=== PATIENT | female | born 1985 | race African-American/Black ===

== ENCOUNTER 2016-04-21 21:06 | Emergency (ER) | payer OTHER ==
[2016-04-21] MEDS ORDERED: ACETAMINOPHEN 500 MG TABLET PO STA (21:57)
[2016-04-21] MEDS ORDERED: ACETAMINOPHEN 500 MG TABLET PO ONE (22:06)
== END 2016-04-21 23:15 | disposition home or self-care (01) ==
DX: T14.90 Injury, unspecified (principal); W18.2XXA Fall in (into) shower or empty bathtub, initial encounter; Y93.E1 Activity, personal bathing and showering; Y92.012 Bathroom of single-family (private) house as the place of occurrence of the external cause; O26.892 Other specified pregnancy related conditions, second trimester; Z3A.17 17 weeks gestation of pregnancy
CPT/HCPCS: 76805; 99283; A9270

== ENCOUNTER 2022-06-26 07:56 | Outpatient (CLI) | payer OTHER ==
[~2022-06-26 07:56] MED LIST: GADOBUTROL 7.5 MMOL/7.5 ML VIAL ONE
[2022-06-26] MEDS ORDERED: GADOBUTROL 7.5 MMOL/7.5 ML VIAL IVP ONE (11:43)
--- NOTE | 2022-06-26 15:30 | MRI Report ---
PROCEDURE: ABDOMEN W/WO INDICATIONS: DISEASES OF LIVER. Per order requisition, history of focal nodular hyperplasia. CONTRAST: gadavist 7.2ml TECHNIQUE: Coronal ultra fast SE, axial 2D spoiled GE in- and [id number]; axial breath-hold T2 fast SE. Dynam ic axial ultra fast GE during the administration of contrast; post-contrast coronal ultra fast GE or 2D spoiled GE with fat saturation from the hepatic dome to the iliac crests. Optional diffusion weig hted imaging and ADC may be performed. COMPARISON: MR Liver without contrast 02/16/2014 FINDINGS: Lung bases: No pleural effusion. Liver: Interval decrease in size of the heterogeneous masslike lesion/region centered within hepatic segment one, approximate dimensions of 6.2 x 4.5 x 5.7 cm (axial 5 minute postcontrast series 15 imag e 27, coronal postcontrast series 14 image 43). Remeasured similarly on the prior exam, previous appr oximate dimensions of 8.0 x 5.0 x 8.5 cm. The finding is heterogeneous in signal but overall similar to adjacent liver parenchyma on T2-weighted images. Internal enhancement is heterogeneous with areas of hyperintensity, isointensity, and hypointensity present on different contrast phases. Gallbladder and biliary tree: No definite gallstones or biliary ductal dilation. Spleen: No splenomegaly. Pancreas: No pancreatic ductal dilation. Adrenals: No adrenal nodule. Kidneys and ureters: No hydronephrosis. No renal cystic lesion which requires follow up. No solid mas s. Bowel and peritoneum: No bowel distension. No pathologic free fluid. Lymph nodes: No central or retroperitoneal adenopathy. Vessels: No infrarenal aortic aneurysm. Bones: No aggressive osseous abnormality. IMPRESSION: Interval decrease in size of the heterogeneous masslike region/lesion centered within the central jamel er. Overall appearance is nonspecific, could potentially represent an atypical appearance of provided history of focal nodular hyperplasia but other etiologies are not excluded. Correlation with any reynaldo or biopsy results may be helpful, imaging follow-up can be obtained as clinically indicated. Given pr ovided history of focal nodular hyperplasia, if future MRIs of the liver are obtained, Eovist contras t media may be helpful. Reviewed by: Gee Malone MD on 06/26/2022 3:29 PM PDT Approved by: Gee Malone MD on 06/26/2022 3:29 PM PDT Station ID: [id number]
== END 2022-06-26 07:57 | disposition home or self-care (01) ==
LOC: DI 07:56
PROVIDERS: ATTEND Student in an Organized Health Care Education/Training Program
DX: K76.89 Other specified diseases of liver (principal)
CPT/HCPCS: 74183; A9585

== ENCOUNTER 2023-09-27 14:33 | Outpatient (CLI) | payer OTHER | END 2023-09-27 23:59 | disposition EMS.NT | LOC: EMS 14:33 | DX: F41.9 Anxiety disorder, unspecified (principal); F12.90 Cannabis use, unspecified, uncomplicated ==

== ENCOUNTER 2023-10-06 22:33 | Outpatient (CLI) | payer OTHER | END 2023-10-06 22:34 | disposition critical access hospital (66) | LOC: EMS 22:33 | DX: R46.89 Other symptoms and signs involving appearance and behavior (principal); R45.1 Restlessness and agitation; R45.83 Excessive crying of child, adolescent or adult | CPT/HCPCS: A0425; A0429 ==

== ENCOUNTER 2023-10-06 22:51 | Emergency (ER) | payer OTHER ==
--- NOTE | 2023-10-06 23:19 | ED Physician Documentation ---
History of Present Illness - Stated complaint Stated Complaint: ANXIETY, ETOH - Chief complaint Chief Complaint: MHE - History obtained from History obtained from: Patient, Family - Additonal information Additional information: HPI from patient as well as her who is in the ED at patient's bedside. Patient complains of feeling confused, difficulty maintaining mental focus and following conversations. Patient says this started earlier this evening while she was at a karaoke bar. Patient's says that she had similar symptoms a few weeks ago for which she was evaluated in the [facility] emergency department. He says that several tests were undertaken without conclusive findings regarding the etiology of her symptoms. Patient denies alcohol use, illicit drug use. She denies recent injury including head injury. PD PAST MEDICAL HISTORY - Past Medical History Past Medical History: Yes Psych: Depression, Anxiety, ADD/ADHD - Past Surgical History Past Surgical History: Yes /[employer]: Dilation and currettage, Breast reduction HEENT: Tonsil/Adenoidectomy - Present Medications Home Medications: Ambulatory Orders Medication Instructions Recorded Confirmed Pnv No.95/Ferrous Fum/Folic AC 1 tab PO DAILY 04/21/16 04/21/16 [ Tablet] - Allergies Allergies/Adverse Reactions: Allergies Allergy/AdvReac Type Severity Reaction Status Date / Time No Known Drug Allergies Allergy Verified 10/06/23 23:00 - Social History Does the pt smoke?: No Smoking Status: Never smoker Does the pt drink ETOH?: No Does the pt have substance abuse?: No - Immunizations Immunizations are current?: Yes PD ED PE NORMAL - Vitals Vital signs reviewed: Yes - General General: Alert and oriented X 3, No acute distress, Well developed/nourished - HEENT HEENT: Atraumatic, PERRL, EOMI - Neck Neck: Supple, no meningeal sign - Cardiac Cardiac: No murmur - Respiratory Respiratory: No respiratory distress, Clear bilaterally - Neuro Neuro: Alert and oriented X 3, hydrogen operator 2-12 intact, No motor deficit, No sensory deficit, Normal speech Eye Opening: Spontaneous Motor: Obeys Commands Verbal: Oriented GCS Score: 15 PD ED PE EXPANDED - Cardiac Cardiac: Tachy, Regular Rhythm Results - Vitals Vitals: Vital Signs - 24 hr 10/06/23 10/07/23 22:55 00:16 Temperature 36.3 C L Heart Rate 126 H 88 Respiratory 20 18 Rate Blood Pressure 133/98 H 124/88 H O2 Saturation 98 99 Oxygen O2 Source Room air - Labs Labs: Laboratory Tests 10/06/23 10/06/23 10/06/23 23:46 23:58 23:58 WBC 8.2 RBC 4.23 Hgb 11.8 L Hct 37.2 MCV 87.9 MCH 27.9 MCHC 31.7 L RDW 13.9 Plt Count 444 MPV 8.7 Neut # (Auto) 5.2 Lymph # (Auto) 2.3 [place] # (Auto) 0.6 Eos # (Auto) 0.1 Baso # (Auto) 0.1 Absolute Nucleated RBC 0.00 Nucleated RBC % 0.0 Sodium 135 Potassium 4.2 Chloride 101 Carbon Dioxide 28 Anion Gap 6.0 BUN 11 Creatinine 0.7 Estimated GFR (MDRD) 113 Glucose 89 Calcium 9.8 Magnesium 2.0 Total Bilirubin 0.3 AST 16 ALT 11 Alkaline Phosphatase 72 Total Creatine Kinase 69 Total Protein 7.1 Albumin 4.3 Globulin 2.8 Albumin/Globulin Ratio 1.5 Lipase 36 TSH 0.63 Urine Color YELLOW Urine Clarity CLEAR Urine pH 5.5 Ur Specific [place] 1.020 Urine Protein NEGATIVE Urine Glucose (UA) NEGATIVE Urine Ketones NEGATIVE Urine Occult Blood SMALL H Urine Nitrite NEGATIVE Urine Bilirubin NEGATIVE Urine Urobilinogen 0.2 (NORMAL) Ur Leukocyte Esterase NEGATIVE Urine RBC 0-5 Urine WBC 0-3 Ur Squamous Epith Cells MOD Squamous H Urine Bacteria None Seen Ur Microscopic Review INDICATED Urine Culture Comments NOT INDICATED Urine HCG, Qual NEGATIVE Salicylates < 1.5 Urine Opiates Screen NEGATIVE Ur Buprenorphine Scrn NEGATIVE Ur Oxycodone Screen NEGATIVE Urine Methadone Screen NEGATIVE Acetaminophen < 0.1 Ur Barbiturates Screen NEGATIVE Ur Tricyclics Screen NEGATIVE Ur Phencyclidine Scrn NEGATIVE Ur Amphetamine Screen POSITIVE H U Methamphetamines Scrn NEGATIVE U Benzodiazepines Scrn NEGATIVE Urine Cocaine Screen NEGATIVE U Cannabinoids Screen POSITIVE H Ur Drug Screen Comment CUTOFF CONC BELOW: Ethyl Alcohol < 10.0 PD Medical Decision Making - ED course Complexity details: reviewed results, re-evaluated patient, considered differential, d/w patient, d/w family ED course: Patient presents with complaint of confusion, difficulty maintaining mental focus and following conversation. She is able to answer orientation questions accurately, but for much of the HPI/ROS, the patient vacillates rapidly between answering accurately and appropriately, then saying she does not know the answer and expressing anxiety about not knowing why she cannot remember the answers to some of these relatively simple questions. Records from her recent [facility] emergency department visit were requested, faxed to me, and reviewed by me; the visit to ED was on September 26 (2023). The HPI indicates the patient had difficulty with word finding shortly after smoking marijuana. Workup at that time was unremarkable except for urine drug screen showing amphetamines (patient's prescription medications include Adderall) and cannabinoids. No imaging studies were done, as the patient's mental status was rapidly improving during the stay and thus effects of the marijuana were suspected cause of her symptoms. I have ordered MHE-oriented testing but patient is requesting d/c home before all results have returned. CBC is resulted and unremarkable. ED RN informs me that patient was walking to/from bathroom (to provide urine sample) and was joking about how strange it was that she couldn't remember answers to simple questions when she first arrived to ED and that she is requesting d/c home. I thus reevaluated the patient. She is asleep when I enter the room, awakens easily to voice. I asked her if she was feeling better and she answers in the affirmative. She tells me she no longer feels confused and is requesting discharge home. The says he is comfortable taking her home at this time. I did explain to both of them that the entirety of her test results have not returned, but, if she is feeling like her symptoms have resolved, it is unlikely that the pending results would indicate a specific diagnosis, need for further testing, or if indicated specific treatment. Return precautions are reviewed. Departure - Departure Disposition: 01 Home, Self Care Clinical Impression: Confusion Condition: Good Instructions: ED Confusion Discharge Date/Time: 10/07/23 00:18
[2023-10-07 00:02] LABS: BILIRUBIN,URINE NEGATIVE (NEGATIVE); GLUCOSE, URINE (UA) NEGATIVE (NEGATIVE); KETONES,URINE (UA) NEGATIVE (NEGATIVE); LEUKOCYTE ESTERASE, URINE NEGATIVE (NEGATIVE); NITRITE,URINE NEGATIVE (NEGATIVE); OCCULT BLOOD,URINE SMALL (NEGATIVE); PH,URINE 5.5 PH (5.0-7.5); PROTEIN,URINE NEGATIVE (NEGATIVE); UROBILINOGEN,URINE 0.2 (NORMAL) E.U./dL (NORMAL)
[2023-10-07 00:02] LABS: BASOPHILS # (AUTO) 0.1 10^3/uL (0.0-0.1); BASOPHILS % (AUTO) 0.7 %; EOSINOPHILS # (AUTO) 0.1 10^3/uL (0.0-0.7); EOSINOPHILS % (AUTO) 0.6 %; HCT - HEMATOCRIT 37.2 % (37.0-47.0); HGB - HEMOGLOBIN 11.8 g/dL (12.0-16.0); LYMPHOCYTES # (AUTO) 2.3 10^3/uL (1.5-3.5); LYMPHOCYTES % (AUTO) 28.1 %; MEAN CORPUSCULAR HEMOGLOBIN 27.9 pg (27.0-31.0); MEAN CORPUSCULAR HGB CONC 31.7 g/dL (32.0-36.0); MEAN CORPUSCULAR VOLUME 87.9 fL (81.0-99.0); MEAN PLATELET VOLUME 8.7 fL (7.9-10.8); MONOCYTES # (AUTO) 0.6 10^3/uL (0.0-1.0); MONOCYTES % (AUTO) 7.2 %; NEUTROPHILS # (AUTO) 5.2 10^3/uL (1.5-6.6); NEUTROPHILS % (AUTO) 63.3 %; PLT - PLATELET COUNT 444 10^3/uL (130-450); RED BLOOD COUNT 4.23 10^6/uL (4.20-5.40); RED CELL DISTRIBUTION WIDTH 13.9 % (12.0-15.0); WHITE BLOOD COUNT 8.2 x10^3/uL (4.8-10.8)
[2023-10-07 00:17] VITALS: BP 124/88; O2SAT 99
[2023-10-07 00:18] LABS: CLARITY,URINE CLEAR (CLEAR); HCG UR QUAL NEGATIVE
[2023-10-07 00:19] LABS: RBC,URINE 0-5 /HPF (0-5); WBC,URINE 0-3 /HPF (0-5)
[2023-10-07 00:20] LABS: AMPHETAMINE SCREEN,URINE POSITIVE (NEGATIVE); BACTERIA,URINE None Seen /HPF (None Seen); BARBITURATE SCREEN,UR NEGATIVE (NEGATIVE); BENZODIAZEPINES SCREEN, URINE NEGATIVE (NEGATIVE); BUPRENORPHINE SCREEN, URINE NEGATIVE (NEGATIVE); COCAINE SCREEN URINE NEGATIVE (NEGATIVE); METHADONE SCREEN, URINE NEGATIVE (NEGATIVE); METHAMPHETAMINES SCREEN, URINE NEGATIVE (NEGATIVE); OPIATE SCREEN, URINE NEGATIVE (NEGATIVE); OXYCODONE SCREEN, URINE NEGATIVE (NEGATIVE); SQUAMOUS EPITHELIAL CELL,UR MOD Squamous (<= Few); THC CANNABINOID SCREEN, URINE POSITIVE (NEGATIVE); TRICYCLIC ANTIDEPRESSANT,URINE NEGATIVE (NEGATIVE)
[2023-10-07 00:32] LABS: THYROID STIMULATING HORMONE 0.63 uIU/mL (0.34-5.60)
[2023-10-07 00:36] LABS: ALBUMIN 4.3 g/dL (3.2-5.5); ALBUMIN/GLOBULIN RATIO 1.5 (1.0-2.2); ALKALINE PHOSPHATASE 72 IU/L (42-121); ALT ALANINE AMINOTRANSFERASE 11 IU/L (10-60); AST ASPARTATE AMINOTRANSFERASE 16 IU/L (10-42); BILIRUBIN,TOTAL 0.3 mg/dL (0.2-1.0); BUN - BLOOD UREA NITROGEN 11 mg/dL (6-20); CALCIUM 9.8 mg/dL (8.5-10.3); CARBON DIOXIDE - CO2 28 mmol/L (21-32); CHLORIDE 101 mmol/L (101-111); CK- CREATINE KINASE 69 IU/L (30-223); CREATININE 0.7 mg/dL (0.6-1.3); ETOH - ETHANOL < 10.0 mg/dL; GFR - MDRD 113 (>89); GLUCOSE 89 mg/dL (74-104); LIPASE 36 U/L (11-82); POTASSIUM 4.2 mmol/L (3.5-4.5); SODIUM 135 mmol/L (135-145); TOTAL PROTEIN 7.1 g/dL (6.4-8.9)
[2023-10-07 00:37] LABS: ACETAMINOPHEN < 0.1 ug/mL; SALICYLATE < 1.5 mg/dL
== END 2023-10-07 00:18 | disposition home or self-care (01) ==
LOC: EDUNIT# → ED 22:51
DX: R41.0 Disorientation, unspecified (principal); Z79.899 Other long term (current) drug therapy
CPT/HCPCS: 36415; 80053; 80143; 80179; 80306; 81001; 81003; 81025; 82077; 82550; 83690; 83735; 84443; 85025; 87086; 99283

== ENCOUNTER 2023-11-01 23:06 | Outpatient (CLI) | payer OTHER | END 2023-11-01 23:07 | disposition critical access hospital (66) | LOC: EMS 23:06 | DX: R56.9 Unspecified convulsions (principal); R45.89 Other symptoms and signs involving emotional state; F10.90 Alcohol use, unspecified, uncomplicated; F12.90 Cannabis use, unspecified, uncomplicated | CPT/HCPCS: A0425; A0429 ==

== ENCOUNTER 2023-11-01 23:22 | Emergency (ER) | payer OTHER ==
--- NOTE | 2023-11-01 23:21 | ED Physician Documentation ---
PD HPI ALTERED MENTAL STATUS - Stated complaint Stated Complaint: AMS - History obtained from History obtained from: Patient, EMS - Additional information Additional information: BIBA. HPI is predominantly from EMS; most of their HPI was informed by the patient's friend on scene (who is not in the ED at this time). Patient contributes some information to HPI, but questionable reliability due to odd behavior. Per EMS, they responded to 911 call at a local club. Patient's friend informed EMS that both he and the patient were sharing a marijuana joint which the friend described as quite strong to EMS. Patient's friend said that the patient then went into "convulsions" (unclear if this was accompanied by LOC, if it was true seizure activity; short, there is no description of what is meant by "convulsions"). In any event, the patient has subsequently been exhibiting emotional lability, frequently anxious and tearful, frequently with vaguely paranoid thoughts although she is denying SI, HI, AH, VH on my HPI.EMS says that, en route to ED, the patient did have some brief periods where she seemed more lucid, aware of what had happened no longer seeming tearful nor anxious, just to shortly thereafter return to crying and expressing that she was not sure where she was or how she had gotten there. PD PAST MEDICAL HISTORY - Past Medical History Past Medical History: No Psych: Depression - Present Medications Home Medications: Ambulatory Orders Medication Instructions Recorded Confirmed Pnv No.95/Ferrous Fum/Folic AC 1 tab PO DAILY 04/21/16 04/21/16 [ Tablet] - Allergies Allergies/Adverse Reactions: Allergies Allergy/AdvReac Type Severity Reaction Status Date / Time No Known Drug Allergies Allergy Verified 10/06/23 23:00 PD ED PE NORMAL - Vitals Vital signs reviewed: Yes - General General: Alert and oriented X 3, Well developed/nourished, Other (tearful, slowly but repeatedly scanning room. adequate eye contact although gaze occasionally suddenly darts around room without provocation/stimulus) - HEENT HEENT: PERRL, EOMI, Moist mucous membranes - Neck Neck: Supple, no meningeal sign - Cardiac Cardiac: No murmur - Respiratory Respiratory: No respiratory distress, Clear bilaterally - Abdomen Abdomen: Soft, Non tender - Neuro Neuro: Alert and oriented X 3 Eye Opening: Spontaneous Motor: Obeys Commands Verbal: Oriented GCS Score: 15 PD ED PE EXPANDED - Cardiac Cardiac: Tachy, Regular Rhythm - Psych Psych: Tearful, Anxious Results - Vitals Vitals: Vital Signs - 24 hr 11/01/23 11/01/23 11/01/23 23:23 23:32 23:52 Temperature 36.7 C Heart Rate 118 H 103 H Respiratory 18 20 Rate Blood Pressure 135/8 H 135/82 H 130/80 O2 Saturation 99 100 11/02/23 11/02/23 11/02/23 00:07 03:05 03:46 Temperature Heart Rate 104 H 104 H 88 Respiratory 18 16 16 Rate Blood Pressure 116/80 119/84 H 118/80 O2 Saturation 98 99 99 Oxygen O2 Source Room air - Labs Labs: Laboratory Tests 11/01/23 11/01/23 11/02/23 23:38 23:38 03:30 WBC 7.6 RBC 4.11 L Hgb 11.7 L Hct 36.0 L MCV 87.6 MCH 28.5 MCHC 32.5 RDW 13.5 Plt Count 415 MPV 8.7 Neut # (Auto) 3.8 Lymph # (Auto) 3.3 [place] # (Auto) 0.4 Eos # (Auto) 0.1 Baso # (Auto) 0.0 Absolute Nucleated RBC 0.00 Nucleated RBC % 0.0 Sodium 138 Potassium 3.4 L Chloride 104 Carbon Dioxide 25 Anion Gap 9.0 BUN 7 Creatinine 0.9 Estimated GFR (MDRD) 84 L Glucose 98 Calcium 10.7 H Total Bilirubin 0.3 AST 15 ALT 11 Alkaline Phosphatase 63 Total Protein 7.7 Albumin 4.5 Globulin 3.2 Albumin/Globulin Ratio 1.4 Lipase 50 Urine Color YELLOW Urine Clarity CLEAR Urine pH 5.5 Ur Specific [place] 1.025 Urine Protein NEGATIVE Urine Glucose (UA) NEGATIVE Urine Ketones TRACE Urine Occult Blood TRACE-INTA Urine Nitrite NEGATIVE Urine Bilirubin NEGATIVE Urine Urobilinogen 0.2 (NORMAL) Ur Leukocyte Esterase NEGATIVE Ur Microscopic Review NOT INDICATED Urine Culture Comments NOT INDICATED Urine HCG, Qual Urine Opiates Screen NEGATIVE Ur Buprenorphine Scrn NEGATIVE Ur Oxycodone Screen NEGATIVE Urine Methadone Screen NEGATIVE Ur Barbiturates Screen NEGATIVE Ur Tricyclics Screen NEGATIVE Ur Phencyclidine Scrn NEGATIVE Ur Amphetamine Screen NEGATIVE U Methamphetamines Scrn NEGATIVE U Benzodiazepines Scrn POSITIVE H Urine Cocaine Screen NEGATIVE U Cannabinoids Screen POSITIVE H Ur Drug Screen Comment CUTOFF CONC BELOW: Ethyl Alcohol 96.7 11/02/23 03:30 WBC RBC Hgb Hct MCV MCH MCHC RDW Plt Count MPV Neut # (Auto) Lymph # (Auto) [place] # (Auto) Eos # (Auto) Baso # (Auto) Absolute Nucleated RBC Nucleated RBC % Sodium Potassium Chloride Carbon Dioxide Anion Gap BUN Creatinine Estimated GFR (MDRD) Glucose Calcium Total Bilirubin AST ALT Alkaline Phosphatase Total Protein Albumin Globulin Albumin/Globulin Ratio Lipase Urine Color Urine Clarity Urine pH Ur Specific [place] Urine Protein Urine Glucose (UA) Urine Ketones Urine Occult Blood Urine Nitrite Urine Bilirubin Urine Urobilinogen Ur Leukocyte Esterase Ur Microscopic Review Urine Culture Comments Urine HCG, Qual NEGATIVE Urine Opiates Screen Ur Buprenorphine Scrn Ur Oxycodone Screen Urine Methadone Screen Ur Barbiturates Screen Ur Tricyclics Screen Ur Phencyclidine Scrn Ur Amphetamine Screen U Methamphetamines Scrn U Benzodiazepines Scrn Urine Cocaine Screen U Cannabinoids Screen Ur Drug Screen Comment Ethyl Alcohol PD Medical Decision Making - ED course Complexity details: considered differential, d/w patient ED course: I evaluated this patient under somewhat similar circumstances 1 month ago in this emergency department. She was not as emotionally labile at that time, but was anxious due to having difficulty with short-term memory. At that time, she denied any alcohol or drug use although she was found to have marijuana on urine drug screen (also amphetamines, but her medication include Adderall). Also on that previous visit, the patient insisted on leaving before the test results (MHE-oriented workup) were resulted. Based on the HPI provided by EMS, most likely etiology is effect of the marijuana she used tonight. She is given 1 mg lorazepam p.o. Initially, congruent with EMS's report the patient has been exhibiting paranoia, the patient expresses great trepidation and, at times, fear of taking this medication. I explained very carefully to her that this is a low dose of a sedative/anti-anxiety medication and I am recommending she take it to help her filter her thoughts and process them more slowly rather than deal with what seems to be a barrage of different bits of information that she is trying to process all at once. She tells me she does not want it take medication that "this can put me in a coma for the rest of my life"; of course, I reassured her that this does not happen with this medication at this dose but, rather, she will remain awake and retain her personality but simply have less anxiety for the short-term. She is agreeable to taking the lorazepam after this discussion. Within approximately 30 to 45 minutes after receiving the lorazepam, the patient fell asleep. On reevaluation, she is drowsy but awakens to voice with gentle tactile (shoulder). She says she feels much improved but "tired". I reviewed test results with her, advised her to never smoke marijuana again given the severe anxiety and paranoia that is very likely a result of using marijuana tonight. Observed for another 2+ hours in ED and gradually became more awake and alert, eventually AAOx3, conversant, appropriate, and in NAD including no longer anxious. Departure - Departure Disposition: 01 Home, Self Care Clinical Impression: Anxiety Condition: Good Instructions: ED Panic Attack Comments: There were no concerning or diagnostic findings on estella's blood tests although your alcohol level was slightly high. Given the information provided by EMS, the most likely cause of your anxiety tonight was a bad reaction to the marijuana use earlier this evening. Given the severe anxiety and paranoia that the marijuana because tonight, you should obviously never used marijuana again. Even smaller amounts have the potential to reproduce the same symptoms. Forms: PCP List Discharge Date/Time: 11/02/23 03:47
[2023-11-01] MEDS: LORazepam 0.5 MG TABLET PO STA (23:39)
[2023-11-01 23:42] LABS: BASOPHILS % (AUTO) 0.5 %; EOSINOPHILS # (AUTO) 0.1 10^3/uL (0.0-0.7); EOSINOPHILS % (AUTO) 0.8 %; HGB - HEMOGLOBIN 11.7 g/dL (12.0-16.0); LYMPHOCYTES # (AUTO) 3.3 10^3/uL (1.5-3.5); MEAN CORPUSCULAR HEMOGLOBIN 28.5 pg (27.0-31.0); MEAN CORPUSCULAR HGB CONC 32.5 g/dL (32.0-36.0); MEAN CORPUSCULAR VOLUME 87.6 fL (81.0-99.0); MEAN PLATELET VOLUME 8.7 fL (7.9-10.8); MONOCYTES # (AUTO) 0.4 10^3/uL (0.0-1.0); MONOCYTES % (AUTO) 5.6 %; NEUTROPHILS # (AUTO) 3.8 10^3/uL (1.5-6.6); NEUTROPHILS % (AUTO) 49.8 %; PLT - PLATELET COUNT 415 10^3/uL (130-450); RED BLOOD COUNT 4.11 10^6/uL (4.20-5.40); RED CELL DISTRIBUTION WIDTH 13.5 % (12.0-15.0); WHITE BLOOD COUNT 7.6 x10^3/uL (4.8-10.8)
[2023-11-02 00:09] LABS: ALBUMIN 4.5 g/dL (3.2-5.5); ALBUMIN/GLOBULIN RATIO 1.4 (1.0-2.2); BILIRUBIN,TOTAL 0.3 mg/dL (0.2-1.0); CALCIUM 10.7 mg/dL (8.5-10.3); CREATININE 0.9 mg/dL (0.6-1.3); POTASSIUM 3.4 mmol/L (3.5-4.5); TOTAL PROTEIN 7.7 g/dL (6.4-8.9)
[2023-11-02 00:16] LABS: ETOH - ETHANOL 96.7 mg/dL
[2023-11-02 03:06] VITALS: O2SAT 99
[2023-11-02 03:38] LABS: BILIRUBIN,URINE NEGATIVE (NEGATIVE); GLUCOSE, URINE (UA) NEGATIVE (NEGATIVE); KETONES,URINE (UA) TRACE mg/dL (NEGATIVE); LEUKOCYTE ESTERASE, URINE NEGATIVE (NEGATIVE); NITRITE,URINE NEGATIVE (NEGATIVE); OCCULT BLOOD,URINE TRACE-INTA (NEGATIVE); PH,URINE 5.5 PH (5.0-7.5); PROTEIN,URINE NEGATIVE (NEGATIVE); UROBILINOGEN,URINE 0.2 (NORMAL) E.U./dL (NORMAL)
[2023-11-02 03:40] LABS: CLARITY,URINE CLEAR (CLEAR); HCG UR QUAL NEGATIVE
[2023-11-02 03:48] LABS: AMPHETAMINE SCREEN,URINE NEGATIVE (NEGATIVE); BARBITURATE SCREEN,UR NEGATIVE (NEGATIVE); BENZODIAZEPINES SCREEN, URINE POSITIVE (NEGATIVE); BUPRENORPHINE SCREEN, URINE NEGATIVE (NEGATIVE); COCAINE SCREEN URINE NEGATIVE (NEGATIVE); METHADONE SCREEN, URINE NEGATIVE (NEGATIVE); METHAMPHETAMINES SCREEN, URINE NEGATIVE (NEGATIVE); OPIATE SCREEN, URINE NEGATIVE (NEGATIVE); OXYCODONE SCREEN, URINE NEGATIVE (NEGATIVE); THC CANNABINOID SCREEN, URINE POSITIVE (NEGATIVE); TRICYCLIC ANTIDEPRESSANT,URINE NEGATIVE (NEGATIVE)
[2023-11-02 03:57] VITALS: BP 118/80
== END 2023-11-02 03:47 | disposition home or self-care (01) ==
LOC: EDUNIT# → ED 23:22
DX: F41.9 Anxiety disorder, unspecified (principal)
CPT/HCPCS: 36415; 80053; 80306; 81003; 81025; 82077; 83690; 85025; 99283; A9270; 81001; 87086